=== PATIENT | male | born 1995 | race African-American/Black ===

== ENCOUNTER 2017-10-02 17:14 | Emergency (ER) | payer SELFPAY ==
[~2017-10-02] VITALS: Ht 190.5 cm; Wt 108.9 kg
[2017-10-02 17:40] VITALS: BP 147/81
== END 2017-10-02 20:25 | disposition home or self-care (01) ==
LOC: ER 17:18
DX: S62.301A Unspecified fracture of second metacarpal bone, left hand, initial encounter for closed fracture (principal); W18.30XA Fall on same level, unspecified, initial encounter; Y93.89 Activity, other specified; Y92.89 Other specified places as the place of occurrence of the external cause; Y99.8 Other external cause status
CPT/HCPCS: 29125; 73080; 73110; 73130